=== PATIENT | female | born 1995 | race Native Hawaiian/Other Pacific Islander ===

== ENCOUNTER 2022-05-12 12:21 | Emergency (ER) | payer BC ==
[~2022-05-12] VITALS: Ht 182.9 cm; Wt 154.2 kg
[2022-05-12 12:29] VITALS: BP 149/63; TEMP 97.2
== END 2022-05-12 13:02 | disposition home or self-care (01) ==
LOC: ED 12:21
DX: K52.89 Other specified noninfective gastroenteritis and colitis (principal)
CPT/HCPCS: 99281